=== PATIENT | female | born 1960 | race Caucasian/White ===

== ENCOUNTER 2018-07-26 18:44 | Emergency (ER) | payer OTHER ==
[~2018-07-26] VITALS: Ht 162.6 cm; Wt 74.8 kg
[2018-07-26] MEDS ORDERED: QVAR8.7 G1 (19:03)
[2018-07-26] MEDS ORDERED: VENTOLIN HFA18 GM (19:03)
[2018-07-26] MEDS ORDERED: DIVIGEL1 EAC1 (19:03)
[2018-07-26] MEDS ORDERED: PROGESTERONE100 MG (19:03)
[2018-07-26] MEDS ORDERED: PREDNISONE5 M1 (19:04)
[2018-07-26] MEDS ORDERED: AMOX-CLAV 875-1 EACH (19:04)
== END 2018-07-26 21:56 | disposition home or self-care (01) ==
LOC: ER 18:44
DX: R22.9 Localized swelling, mass and lump, unspecified (principal); T36.0X5A Adverse effect of penicillins, initial encounter

== ENCOUNTER 2018-07-27 17:51 | Emergency (ER) | payer OTHER ==
[~2018-07-27] VITALS: Ht 167.6 cm; Wt 78.0 kg
[~2018-07-27 17:51] MED LIST: AMOX-CLAV 875-1 EACH; DIVIGEL1 EAC1; PREDNISONE5 M1; PROGESTERONE100 MG; QVAR8.7 G1; VENTOLIN HFA18 GM
== END 2018-07-27 23:48 | disposition home or self-care (01) ==
LOC: ER 17:51
DX: T36.0X5A Adverse effect of penicillins, initial encounter (principal); Y92.89 Other specified places as the place of occurrence of the external cause

== ENCOUNTER 2018-08-18 21:09 | Emergency (ER) | payer OTHER ==
[~2018-08-18] VITALS: Ht 167.6 cm; Wt 76.2 kg
[2018-08-19] MEDS ORDERED: KETO10TA2 PO (03:48)
[2018-08-19] MEDS ORDERED: BACTRIM DS TAB1 EACH PO (03:48)
== END 2018-08-19 04:07 | disposition home or self-care (01) ==
LOC: ER 21:09
DX: N39.0 Urinary tract infection, site not specified (principal)

== ENCOUNTER → 2021-04-21 15:00 | Outpatient (CLI) | payer OTHER ==
[~2021-04-21 15:00] MED LIST changes: +BACTRIM DS TAB1 EACH PO; +KETO10TA2 PO
== END | disposition home or self-care (01) ==
LOC: PPH VACUNA 15:00
DX: Z23 Encounter for immunization (principal)

== ENCOUNTER 2021-05-09 07:06 | Day surgery (SDC) | payer OTHER | END 2021-05-09 11:20 | disposition home or self-care (01) | LOC: AMB-ENDOS 07:06 → CIR.AMB 13:00 | PROVIDERS: ATTEND Surgery | DX: D12.5 Benign neoplasm of sigmoid colon (principal); K64.8 Other hemorrhoids; Z20.822 Contact with and (suspected) exposure to COVID-19 ==